=== PATIENT | male | born 1980 | race Caucasian/White ===

== ENCOUNTER 2018-08-23 06:42 | Emergency (ER) | payer OTHER ==
[~2018-08-23] VITALS: Ht 157.5 cm; Wt 124.7 kg
[~2018-08-23 06:42] MED LIST: ALBU90OI INH; ALBU90OI6 INH; AMLO5 PO; ATEN25 PO; ATENOLOL-? DOSE; AZIT250 PO; BENZ100A PO; CAPT50 PO; CLIN300 PO; CRUTCH3 USE; CRUTCH4 USE; Cyclobenzaprine5 MG PO; DOXY100 PO; HYDACE5 PO; HYDACE5325 PO; IBUP800 PO; K-Dur 20 meq T20 MEQ PO; Lasix20 MG PO; METO100ER PO; NAPR500 PO; Norco 5-325 Ta1 EACH PO; Norco 7.5-3251 EACH PO; Norvasc5 MG PO; OXYACE5T PO; PENVK250 PO; PENVK500 PO; PRED20 PO; PROM25 PO; Prednisone20 MG PO; Pseudoephedrine30 MG PO; RXPENVK250 PO; SULTRIDS PO; TADA10TA PO; TOBR.3OPSO OP; Ultram50 MG PO; Zofran Odt4 MG SL
[2018-08-23] MEDS ORDERED: Robaxin500 MG PO (08:29)
== END 2018-08-23 08:50 | disposition home or self-care (01) ==
LOC: ER 06:42
DX: M54.6 Pain in thoracic spine (principal); R07.81 Pleurodynia; I10 Essential (primary) hypertension; J45.909 Unspecified asthma, uncomplicated; F17.200 Nicotine dependence, unspecified, uncomplicated; Z79.899 Other long term (current) drug therapy
CPT/HCPCS: 71101; 96372; 99283-25; J1885

== ENCOUNTER 2020-12-26 17:57 | Emergency (ER) | payer OTHER ==
[~2020-12-26] VITALS: Ht 188 cm; Wt 127.9 kg
[~2020-12-26 17:57] MED LIST changes: +Bactrim Ds Tab1 EACH PO; +Robaxin500 MG PO
[2020-12-26 19:04] LABS: BASOPHILS ABSOLUTE AUTO 0.05 K/mm3 (0.00-0.23); BASOPHILS PERCENT AUTO 1 % (0-2); EOSINOPHILS ABSOLUTE AUTO 0.22 K/mm3 (0.00-0.68); EOSINOPHILS PERCENT AUTO 2 % (0-6); Hematocrit 44.1 % (37.0-53.0); Hemoglobin 15.4 g/dL (13.5-17.5); IMMATURE GRAN ABSOLUTE AUTO 0.02 K/mm3 (0.00-0.10); IMMATURE GRAN PERCENT AUTO 0 % (0-1); LYMPHOCYTES ABSOLUTE AUTO 3.44 K/mm3 (0.84-5.20); LYMPHOCYTES PERCENT AUTO 37 % (21-46); MONOCYTES ABSOLUTE AUTO 0.76 K/mm3 (0.16-1.47); MONOCYTES PERCENT AUTO 8 % (4-13); Mean Corpuscular HGB 30.7 pg (26.0-34.0); Mean Corpuscular HGB Conc 34.9 g/dL (31.5-36.5); Mean Corpuscular Volume 88 fL (80-100); Mean Platelet Volume 10.2 fL (9.1-12.4); NEUTROPHILS ABSOLUTE AUTO 4.77 K/mm3 (1.96-9.15); NEUTROPHILS PERCENT AUTO 52 % (41-73); Platelet Count 248 K/mm3 (150-400); RDW Coefficient Variation 12.2 % (11.7-14.2); RDW Standard Deviation 39.5 fL (35.1-46.3); Red Blood Cell Count 5.01 M/mm3 (4.30-5.90); White Blood Cell Count 9.26 K/mm3 (4.00-11.30)
[2020-12-26 19:23] LABS: Alanine Aminotransfer (ALT/SGP 68 U/L (12-78); Albumin, Blood 3.9 g/dL (3.4-5.0); Albumin/Globulin Ratio 1.1 (0.8-1.8); Alk Phos 86 U/L (50-136); Anion Gap 6 mmol/L (6-16); Aspartate Aminotrans (AST/SGOT 31 U/L (12-37); Bilirubin, Total 0.5 mg/dL (0.1-1.0); Blood Urea Nitrogen 16 mg/dL (8-24); Bun/Creatinine Ratio 17.9 (12.0-20.0); CO2, Blood 26 mmol/L (21-32); Calcium, Blood 8.9 mg/dL (8.5-10.1); Chloride, Blood 110 mmol/L (98-108); Creatinine, Blood 0.89 mg/dL (0.60-1.20); Globulin, Blood 3.5 g/dL (2.2-4.0); Glomerular Filtration Rate >60 (60-); Glucose, Blood 93 mg/dL (70-99); Potassium, Blood 3.6 mmol/L (3.5-5.5); Sodium, Blood 142 mmol/L (136-145); Total Protein, Blood 7.4 g/dL (6.4-8.2)
== END 2020-12-26 20:33 | disposition home or self-care (01) ==
LOC: ER 17:57
PROVIDERS: Physician Assistant
DX: H53.8 Other visual disturbances (principal); I10 Essential (primary) hypertension; J45.909 Unspecified asthma, uncomplicated; F17.200 Nicotine dependence, unspecified, uncomplicated; Z88.8 Allergy status to other drugs, medicaments and biological substances; Z79.899 Other long term (current) drug therapy
CPT/HCPCS: 36415; 70450; 80053; 85025; 99284-25

== ENCOUNTER 2021-04-25 08:09 | Emergency (ER) | payer OTHER ==
[~2021-04-25] VITALS: Ht 177.8 cm; Wt 90.7 kg
== END 2021-04-25 09:42 | disposition home or self-care (01) ==
LOC: ER 08:09
DX: S61.217A Laceration without foreign body of left little finger without damage to nail, initial encounter (principal); I10 Essential (primary) hypertension; J45.909 Unspecified asthma, uncomplicated; F17.200 Nicotine dependence, unspecified, uncomplicated; Z79.899 Other long term (current) drug therapy; X58.XXXA Exposure to other specified factors, initial encounter
CPT/HCPCS: 12001; 73140; 90471; 90714; 99283-25

== ENCOUNTER 2021-06-29 00:25 | Emergency (ER) | payer OTHER ==
[~2021-06-29] VITALS: Ht 188 cm; Wt 108.9 kg
== END 2021-06-29 05:14 | disposition home or self-care (01) ==
LOC: ER 00:25
DX: G43.909 Migraine, unspecified, not intractable, without status migrainosus (principal); J06.9 Acute upper respiratory infection, unspecified; J40 Bronchitis, not specified as acute or chronic; I10 Essential (primary) hypertension; F17.200 Nicotine dependence, unspecified, uncomplicated; Z88.1 Allergy status to other antibiotic agents; Z79.899 Other long term (current) drug therapy
CPT/HCPCS: 71045; A9270; J1790; J1885

== ENCOUNTER 2021-09-17 14:26 | Emergency (ER) | payer OTHER ==
[~2021-09-17] VITALS: Ht 188 cm; Wt 124.7 kg
== END 2021-09-17 16:24 | disposition left against medical advice (07) ==
LOC: ER 14:26
DX: M25.512 Pain in left shoulder (principal); X50.0XXA Overexertion from strenuous movement or load, initial encounter; J45.909 Unspecified asthma, uncomplicated; I10 Essential (primary) hypertension; F17.200 Nicotine dependence, unspecified, uncomplicated; Z88.1 Allergy status to other antibiotic agents
CPT/HCPCS: 73030; 99283-25

== ENCOUNTER 2021-12-18 07:52 | Emergency (ER) | payer OTHER ==
[~2021-12-18] VITALS: Ht 188 cm; Wt 119.3 kg
[2021-12-18] MEDS ORDERED: LOSARTAN POTASS50 M1 PO (08:18)
[2021-12-18] MEDS ORDERED: PROP10 PO (08:18)
== END 2021-12-18 09:21 | disposition home or self-care (01) ==
LOC: ER 07:52
DX: S61.213A Laceration without foreign body of left middle finger without damage to nail, initial encounter (principal); Z23 Encounter for immunization; J45.909 Unspecified asthma, uncomplicated; I10 Essential (primary) hypertension; G43.909 Migraine, unspecified, not intractable, without status migrainosus; Z88.8 Allergy status to other drugs, medicaments and biological substances; Z79.899 Other long term (current) drug therapy; F17.200 Nicotine dependence, unspecified, uncomplicated; W45.8XXA Other foreign body or object entering through skin, initial encounter
CPT/HCPCS: 90714

== ENCOUNTER 2022-01-27 08:24 | Emergency (ER) | payer OTHER ==
[~2022-01-27] VITALS: Ht 185.4 cm; Wt 120.2 kg
[~2022-01-27 08:24] MED LIST changes: +LOSARTAN POTASS50 M1 PO; +PROP10 PO
[2022-01-27] MEDS ORDERED: Cyclobenzaprine5 MG PO (09:41)
[2022-01-27] MEDS ORDERED: ALBU90OI INH (09:41)
[2022-01-27] MEDS ORDERED: SILDENAFIL CIT100 MG PO (09:41)
== END 2022-01-27 10:28 | disposition home or self-care (01) ==
LOC: ER 08:24
DX: S50.02XA Contusion of left elbow, initial encounter (principal); S54.02XA Injury of ulnar nerve at forearm level, left arm, initial encounter; W10.9XXA Fall (on) (from) unspecified stairs and steps, initial encounter; I10 Essential (primary) hypertension; J45.909 Unspecified asthma, uncomplicated; Z87.891 Personal history of nicotine dependence
CPT/HCPCS: 73080; A9270

== ENCOUNTER 2022-09-25 08:35 | Day surgery (SDC) | payer OTHER ==
[~2022-09-25] VITALS: Ht 185.4 cm; Wt 120.0 kg
[~2022-09-25 08:35] MED LIST changes: +SILDENAFIL CIT100 MG PO
[2022-09-25] MEDS ORDERED: TESTOSTERONE200 MG (09:10)
[2022-09-25] MEDS ORDERED: Benicar40 MG (09:11)
--- NOTE | 2022-09-25 10:45 | NUR ---
09/25/22 [id number] Dulce Tapia PT IN PRONE POSITION HEAD ON FOAM REST, ARMS EXTEND ON ARM BOARDS, LEGS ON PILLOW, BOULSTERS UNDER CHEST/ABDOMEN, SAFETY BELT ON OVER LOWER BACK.
[2022-09-25 12:37] VITALS: BP 114/75
--- NOTE | 2022-09-25 12:40 | NUR ---
09/25/22 1240 Blu Groves PT TOLERATED EATING AND DRINKING WITH NO ISSUES. NO C/O NAUSEA OR PAIN VSS. DISCHARGE INSTRUCTIONS GIVEN, ALL QUESTIONS ANSWERED. SON WILL TAKE PT HOME.
== END 2022-09-25 12:45 | disposition home or self-care (01) ==
LOC: ORSCSDS 08:35
PROVIDERS: Podiatrist Foot & Ankle Surgery
PROC: 0QBL0ZZ Excision of Right Tarsal, Open Approach (ICD-10-PCS; principal; 2022-09-25 10:00)
PROC: 0L8N0ZZ Division of Right Lower Leg Tendon, Open Approach (ICD-10-PCS; principal; 2022-09-25 10:00)
DX: M76.61 Achilles tendinitis, right leg (principal); I10 Essential (primary) hypertension; J45.909 Unspecified asthma, uncomplicated; Z87.891 Personal history of nicotine dependence; E66.9 Obesity, unspecified; Z68.35 Body mass index [BMI] 35.0-35.9, adult; Z79.899 Other long term (current) drug therapy
CPT/HCPCS: C1713; J0690; J1100; J1885; J2250; J2371; J2405; J2704; J2795; J3010; J7120

== ENCOUNTER → 2023-02-12 | Outpatient (CLI) | payer OTHER ==
[~2023-02-12] MED LIST changes: +Benicar40 MG; +TESTOSTERONE200 MG
[2023-02-14 16:19] LABS: APTIMA MEDIA TYPE Urine; C. TRACHOMATIS BY TMA Negative (Negative); N. GONORRHOEAE BY TMA Negative (Negative); SPECIMEN SOURCE Urine; T. VAGINALIS BY TMA Negative (Negative)
== END | disposition home or self-care (01) ==
LOC: LAB SHORT 09:00 → LAB 09:00
PROVIDERS: Registered Nurse Community Health
DX: Z11.3 Encounter for screening for infections with a predominantly sexual mode of transmission (principal); Z20.2 Contact with and (suspected) exposure to infections with a predominantly sexual mode of transmission
CPT/HCPCS: 87491; 87591; 87661

== ENCOUNTER 2024-09-29 10:35 | Emergency (ER) | payer SELFPAY ==
[~2024-09-29] VITALS: Ht 188 cm; Wt 144.7 kg
[~2024-09-29 10:35] MED LIST changes: +PROPRANOLOL HC120 MG PO
[2024-09-29] MEDS ORDERED: Ketorolac Tromethamine 15mg Vial IM ONE (11:30)
[2024-09-29 13:45] VITALS: BP 187/133
== END 2024-09-29 13:43 | disposition home or self-care (01) ==
LOC: ER 10:35
DX: M25.561 Pain in right knee (principal); J45.909 Unspecified asthma, uncomplicated; I10 Essential (primary) hypertension; Z87.891 Personal history of nicotine dependence; Z79.899 Other long term (current) drug therapy; Z88.8 Allergy status to other drugs, medicaments and biological substances
CPT/HCPCS: 73562-RT; 96372; 99283-25; A9270; J1885